=== PATIENT | male | born 1990 | race Caucasian/White ===

== ENCOUNTER 2017-02-03 00:29 | Emergency (ER) | payer SELFPAY ==
[2017-02-03 00:41] VITALS: BMI 24.9
--- NOTE | 2017-02-03 01:18 | DR.GENAD ---
HPI - PCP Primary Care Physician: nfd - Complaint/Symptoms Chief Complaint Doctors Comments: Patient states he is cold and has been trying to get intouch with his girl friend and has been out his friends and he has been drinking all day and they put him out at [facility] and he was walking home and he police picked him up and took him home but he could not get into the house and he was walking back and got cold so he came into the hospital. States he was thinking about hurting himself before the police picked him up that he was thinking about walking into the other line into incoming car. States he has never tried to hurt himself before. States he has a DUI from another [facility] and his parents told him if he was drinking for any reason they would put him out and he would be homeless. States he was trying not to let his parent find out that he has been drinking. State he drank about 18 pack beer today. States there has been times he drank two cases of beer. That he can hold his liquor. States he does not have a local doctor. States he injured his right knee when he fell at work about a week ago and he did not go to the doctor. He denies drug or tabacco use. Patient presently states he is not thinking about hurting himself and has never tried to hurt himself that it was the alcohol talking last night and he need to stop drinking. States he left his phone in the truck of his bri that he was with earlier that day and he was unable to get into his house because everyone was sleeping and he decided to walk to the hospital. States he is not suicidal. Patient's alcohol level is 24. Chief Complaint:: pt in lobby taking clothes off-pt smells strongly of etoh-pt says he has consumed approx a twelve pack tonight and walked to hospital-denies suicidal ideations - Nurses notes reviewed Nurses Notes Review: Yes - Source History Provided: Patient - Mode of Arrival Mode of Arrival: Ambulatory - Timing Onset of Chief Complaint: 02/03/17 Came on: Gradually - Duration Duration: Constant How lon Duration: Hours - Location Location: right knee pain - Severity Severity: Mild - Modifying Factors Worsens:: movement and walking Improves:: rest PMH - PMH Past Medical History: No Past Surgical History: No - Family History History of Family Medical Conditions: No - infectious screening In the last 2 months have you had wt loss of >10#?: NO Have you had fever, night sweats or hemotysis?: No Have you traveled outside the country in the last 6 months?: No Isolation: Standard ROS - Review of Systems Constitutional: No Symptoms Reported. negative: See HPI, Chills, Diaphoresis, Fever, Malaise, Weakness, Irritable, Fatigue, Loss of Appetite, Other Eyes: No Symptoms Reported ENTM: No Symptoms Reported, Nose Congestion Respiratoy: No Symptoms Reported. negative: See HPI, Productive Cough, Non- Productive Cough, Moist Cough, Dry Cough, Hacking Cough, Barking Cough, Brassy Cough, Orthopnea, Short of Breath, Stridor, Wheezing, Hemoptysis, Other Cardiovascular: No Symptoms Reported. negative: See HPI, Chest Pain, Edema, Palpitations, Syncope, Cyanosis, Skin Mottling, Other Gastrointestinal/Abdominal: No Symptoms Reported. negative: See HPI, Abdominal Pain, Constipation, Diarrhea, Nausea, Vomiting, Food Intolerance, Other Genitourinary: No Symptoms Reported Neurological: No Symptoms Reported, Depressed, Emotional Problems Musculoskeletal: No Symptoms Reported, Right, Knee Integumentary: No Symptoms Reported, Bruises (right knee with bruising) Hematologic/Lymphatic: No Symptoms Reported Endocrine: No Symptoms Reported Psychiatric: No Symptoms Reported PE - Vital Signs Vitals: Temperature 97.0 F Pulse Rate [Left Brachial] 80 Pulse Rate 86 Respiratory Rate 16 Blood Pressure [Left Arm] 107/57 Blood Pressure 112/75 O2 Sat by Pulse Oximetry 98 - General Limitations: No Limitations General Appearance: Alert, Appears Intoxicated - Head Head Exam: Normal Inspection, Atraumatic, Normocephalic - Eyes Eye exam: Normal Appearance, PERRL, EOMI. negative: Scleral Icterus, Conjunctival Injection, Nystagmus, Miosis, Mydrasis, Periorbital Swelling, Periorbital Tenderness, Other - ENT ENT Exam: Normal Exam, Normal Oropharynx, Normal External Ear Exam, Mucous Membranes Moist, TM's Normal Bilaterally External Ear Exam: Normal External Inspection TM/Canal Exam: Bilateral Normal Nose Exam: Normal Nose Exam Mouth Exam: Normal Inspection Throat Exam: Normal Inspection - Neck Neck Exam: Normal Inspection, Full ROM, Trachea Midline - Chest Chest Inspection: Normal Inspection, Symmetric Chest Wall Rise - Respiratory Respiratory Exam: Normal Lung Sounds Bilat Respiratory Exam: Bilateral Clear to Auscultation - Cardiovascular Cardiovascular Exam: Regular Rate, Normal Rhythm, Normal Heart Sounds - Abdominal Exam Abdominal Exam: Normal Inspection, Normal Bowel Sounds, Soft Abdominal Tenderness: negative: RUQ, RLQ, LUQ, LLQ, Epigastrium, Suprapubic, Diffuse, Mild, Moderate, Severe, Other - Extremities Extremities Exam: Normal Inspection, Full ROM, Tenderness (right knee with bruising, tender on palpation), Normal Capillary Refill - Back Back Exam: Normal Inspection, Full ROM - Neurologic Neurological Exam: Alert, Oriented X3, CN II-XII Intact, Reflexes Normal. negative: Normal Gait (gait not tested) - Psychiatric Psychiatric Exam: Normal Affect, Depressed, Flat Affect, Suicidal Ideation - Skin Skin Exam: Warm, Dry, Intact, Normal Color ROR - Labs Reviewed Laboratory Results Reviewed?: Yes (all labs and x-ray results reviewed and discussed with patient) Result Diagrams: 02/03/17 01:20 02/03/17 01:20 Laboratory: WBC 8.2 X10^3/uL (3.6-10.0) 02/03/17 01:20 RBC 5.62 X10^6/uL (4.7-6.0) 02/03/17 01:20 Hgb 16.0 g/dL (13.5-18.0) 02/03/17 01:20 Hct 47.3 % (42.0-54.0) 02/03/17 01:20 MCV 84.1 fL (80.0-100.0) 02/03/17 01:20 MCH 28.5 pg (27.0-34.0) 02/03/17 01:20 MCHC 33.8 g/dL (33.0-35.0) 02/03/17 01:20 RDW 13.3 % (11.6-16.5) 02/03/17 01:20 Plt Count 279 X10^3/uL (150.0-450.0) 02/03/17 01:20 MPV 7.9 fL (7.4-11.0) 02/03/17 01:20 Neut % 47.9 % (42.0-75.0) 02/03/17 01:20 Lymph % 44.2 % (21.0-51.0) 02/03/17 01:20 Gosper % 4.1 % (0.0-13.0) 02/03/17 01:20 Eos % 3.1 % (0.9-2.9) H 02/03/17 01:20 Baso % 0.7 % (0.2-1.0) 02/03/17 01:20 Neut # 3.9 x10^3/uL (2.2-4.8) 02/03/17 01:20 Lymph # 3.6 X10^3/uL (1.3-2.9) H 02/03/17 01:20 Gosper # 0.3 x10^3/uL (0.3-0.8) 02/03/17 01:20 Eos # 0.3 x10^3/uL (0.0-0.2) H 02/03/17 01:20 Baso # 0.1 X10^3/uL (0.0-0.1) 02/03/17 01:20 Absolute Nucleated RBC 0.1 /100WBC 02/03/17 01:20 INR Target Range - 02/03/17 01:20 INR 0.94 (0.8-1.3) 02/03/17 01:20 PTT 25.8 SECONDS (22.9-36.5) 02/03/17 01:20 PTT Comment - 02/03/17 01:20 Sodium 140 mmol/L (136-145) 02/03/17 01:20 Corrected Sodium TNP 02/03/17 01:20 Potassium 4.5 mmol/L (3.5-5.1) 02/03/17 01:20 Chloride 103 mmol/L (98-107) 02/03/17 01:20 Carbon Dioxide 25.7 mmol/L (21-32) 02/03/17 01:20 BUN 11 mg/dL (7-18) 02/03/17 01:20 Creatinine 1.01 mg/dL (0.70-1.30) 02/03/17 01:20 Est GFR (MDRD) Af Amer > 60 (>60) 02/03/17 01:20 Est GFR (MDRD) Non-Af > 60 (>60) 02/03/17 01:20 Glucose 82 mg/dL (65-99) 02/03/17 01:20 Calcium 8.9 mg/dL (8.5-10.1) 02/03/17 01:20 Corrected Calcium TNP 02/03/17 01:20 Magnesium 2.1 mg/dL (1.7-2.9) 02/03/17 01:20 Total Bilirubin 0.50 mg/dL (0.2-1.0) 02/03/17 01:20 AST 35 Units/L (15-37) 02/03/17 01:20 ALT 57 Units/L (12-78) 02/03/17 01:20 Alkaline Phosphatase 120 Units/L (46-116) H 02/03/17 01:20 Creatine Kinase 332 Units/L (39-308) H 02/03/17 01:20 CK-MB (CK-2) 2.7 ng/mL (0-4.0) 02/03/17 01:20 CK/CKMB % Calc 0.8 % (<4) 02/03/17 01:20 Troponin I < 0.02 ng/mL (0-1.5) 02/03/17 01:20 Total Protein 8.7 g/dL (6.4-8.2) H 02/03/17 01:20 Albumin 4.6 g/dL (3.4-5.0) 02/03/17 01:20 Globulin 4.1 g/dL (2.5-4.5) 02/03/17 01:20 Albumin/Globulin Ratio 1.1 Ratio (1.1-2.1) 02/03/17 01:20 Salicylates < 2.8 mg/dL (2.8-20) L 02/03/17 01:20 Urine Opiates Screen Negative (NEG=<300) 02/03/17 01:15 Urine Methadone Screen Negative (NEG=<300) 02/03/17 01:15 Acetaminophen 0.0 ug/mL (10-30) L 02/03/17 01:20 Ur Barbiturates Screen Negative (NEG=<200) 02/03/17 01:15 Ur Phencyclidine Scrn Negative (NEG=<25) 02/03/17 01:15 Ur Amphetamines Screen Negative (NEG=<1000) 02/03/17 01:15 U Benzodiazepines Scrn Negative (NEG=<200) 12/09/17 01:15 Urine Cocaine Screen Negative (NEG=<300) 02/03/17 01:15 U Marijuana (THC) Screen Negative (NEG=<50) 02/03/17 01:15 Ethyl Alcohol mg/dL 24 mg/dL (0-19.9) H 02/03/17 08:48 - XRAY XRAY Interpreted by: Radiologist (CXR: no acute cardiopulmonary changes noted. Normal examination) - Diagnosis Discharge Problem: Alcohol abuse Alcohol intoxication Qualifiers: Complication of substance-induced condition: uncomplicated Qualified Code(s): F10.920 - Alcohol use, unspecified with intoxication, uncomplicated - Discharge Plan Disposition: HOME, SELF-CARE Condition: Stable - Follow ups/Referrals Follow ups/Referrals: NFD,None [Primary Care Provider] - 3 days Gus Lemos [STAFF PHYSICIAN] - 3 days - Instructions Instructions: Alcohol Intoxication, Alcohol Abuse and Nutrition
[2017-02-03 01:31] LABS: BASOPHILS # (AUTO) 0.1 X10^3/uL (0.0-0.1); BASOPHILS % (AUTO) 0.7 % (0.2-1.0); EOSINOPHILS # (AUTO) 0.3 x10^3/uL (0.0-0.2); EOSINOPHILS % (AUTO) 3.1 % (0.9-2.9); HEMATOCRIT 47.3 % (42.0-54.0); LYMPHOCYTES # (AUTO) 3.6 X10^3/uL (1.3-2.9); LYMPHOCYTES % (AUTO) 44.2 % (21.0-51.0); MEAN CORPUSCULAR HEMOGLOBIN 28.5 pg (27.0-34.0); MEAN CORPUSCULAR HGB CONC 33.8 g/dL (33.0-35.0); MEAN CORPUSCULAR VOLUME 84.1 fL (80.0-100.0); MEAN PLATELET VOLUME 7.9 fL (7.4-11.0); MONOCYTES # (AUTO) 0.3 x10^3/uL (0.3-0.8); MONOCYTES % (AUTO) 4.1 % (0.0-13.0); NEUTROPHILS # (AUTO) 3.9 x10^3/uL (2.2-4.8); NEUTROPHILS % (AUTO) 47.9 % (42.0-75.0); PLATELET COUNT 279 X10^3/uL (150.0-450.0); RED BLOOD COUNT 5.62 X10^6/uL (4.7-6.0); RED CELL DISTRIBUTION WIDTH 13.3 % (11.6-16.5); WHITE BLOOD COUNT 8.2 X10^3/uL (3.6-10.0)
[2017-02-03 01:50] LABS: BLOOD UREA NITROGEN 11 mg/dL (7-18); CALCIUM 8.9 mg/dL (8.5-10.1); CARBON DIOXIDE 25.7 mmol/L (21-32); CHLORIDE 103 mmol/L (98-107); CREATININE 1.01 mg/dL (0.70-1.30); SODIUM 140 mmol/L (136-145); TROPONIN I < 0.02 ng/mL (0-1.5); eGFR BLACK RACES > 60 (>60); eGFR NON BLACK RACES > 60 (>60)
[2017-02-03 01:53] LABS: ALANINE AMINOTRANSFERASE 57 Units/L (12-78); ALBUMIN 4.6 g/dL (3.4-5.0); ALKALINE PHOSPHATASE 120 Units/L (46-116); ASPARTATE AMINO TRANSFERASE 35 Units/L (15-37); BLOOD ALCOHOL 133 mg/dL (0-19.9); CKMB % 0.8 % (<4); CREATINE KINASE 332 Units/L (39-308); CREATINE KINASE MB 2.7 ng/mL (0-4.0); MAGNESIUM 2.1 mg/dL (1.7-2.9); TOTAL PROTEIN 8.7 g/dL (6.4-8.2)
[2017-02-03 02:07] LABS: SALICYLATE < 2.8 mg/dL (2.8-20)
--- NOTE | 2017-02-03 06:13 | RAD ---
Examination: Portable AP chest History: Chest pain Findings: Normal appearance of heart, lungs, mediastinum and pleural spaces. Impression: Normal examination. Reported By:
[2017-02-03 08:06] VITALS: BP 107/57
== END 2017-02-03 09:51 | disposition home or self-care (01) ==
LOC: ER 00:29
DX: F10.920 Alcohol use, unspecified with intoxication, uncomplicated (principal)
CPT/HCPCS: 36415; 71010; 80053; 80307; 80320; 82550; 82553; 83735; 84484; 85025; 85610; 85730; 93005; 93010; 99283; G0434; G6038; G6039; G6040